=== PATIENT | female | born 1950 | race American Indian/Alaskan Native ===

== ENCOUNTER 2017-11-16 20:34 | Emergency (ER) | payer SELFPAY ==
[2017-11-16] MEDS ORDERED: TYLENOL ONE ×2 (20:47→20:48)
[2017-11-16] MEDS: TYLENOL PO ONE (20:55)
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
[2017-11-17] MEDS: FLEXERIL PO ONE (00:15)
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
[2017-11-17 01:32] VITALS: BP 140/88
== END 2017-11-17 01:32 | disposition home or self-care (01) ==
LOC: ED 20:34
DX: M79.1 Myalgia (principal)
CPT/HCPCS: 70450; 71110; 93005; 93010

== ENCOUNTER 2021-05-21 18:32 | Emergency (ER) | payer MEDICARE, OTHER ==
[2021-05-21 19:29] VITALS: BP 137/68
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
== END 2021-05-21 22:14 | disposition home or self-care (01) ==
LOC: ED 18:32
DX: S80.01XA Contusion of right knee, initial encounter (principal); R07.89 Other chest pain; I10 Essential (primary) hypertension; Z98.51 Tubal ligation status; Z79.899 Other long term (current) drug therapy; V87.7XXA Person injured in collision between other specified motor vehicles (traffic), initial encounter; Y93.89 Activity, other specified; Y92.488 Other paved roadways as the place of occurrence of the external cause; Y99.8 Other external cause status
CPT/HCPCS: 71046; 99283